=== PATIENT | male | born 1960 | race Hispanic/Latino ===

== ENCOUNTER 2020-07-12 20:16 | Inpatient (IN) | payer MEDICARE ==
[2020-07-12] MEDS ORDERED: Ondansetron PF 4 MG/2 ML Vial ONE (20:50)
[2020-07-12 21:14] LABS: #Basophils 0.1 thou/uL (0.0-0.2); #Eosinphils 0.3 thou/uL (0.0-0.7); #Monocytes 1.3 thou/uL (0.11-0.59); #Neutrophils 6.6 thou/uL (1.40-6.50); %Basophils 0.8 % (0.0-1.0); %Eosinophils 2.7 % (0.0-10.0); %Lymphocytes 19.6 % (21.0-51.0); %Monocytes 12.4 % (0.0-10.0); %Neutrophils 64.6 % (42.0-75.0); Hemoglobin 17.1 g/dL (14.0-18.0); Mean Corpuscular HGB CONC 32.1 g/dL (32.0-36.0); Mean Corpuscular Hemoglobin 31.2 pg (27.0-31.0); Platelet Count 163 thou/uL (130-400); RBC Distribution Width 13.6 % (11.5-14.5); Red Blood Cell (RBC) Count 5.48 mill/uL (4.70-6.10); White Blood Cell (WBC) Count 10.2 thou/uL (4.8-10.8)
[2020-07-12 21:34] LABS: ALT (SGPT) 15 U/L (8-55); AST (SGOT) 15 U/L (5-34); Albumin 3.6 g/dL (3.5-5.0); Alkaline Phosphatase 39 U/L (40-110); Anion Gap 14 mmol/L (10-20); BUN (Urea Nitrogen) 33 mg/dL (8.4-25.7); Calc. Creatinine Clearance 0 mL/min (70-130); Calcium 8.1 mg/dL (7.8-10.44); Carbon Dioxide 27 mmol/L (22-29); Chloride 97 mmol/L (98-107); Globulin 3.6 g/dL (2.4-3.5); Glucose 97 mg/dL (70-105); Lipase 34 U/L (8-78); Potassium 3.8 mmol/L (3.5-5.1); Protein, Total 7.2 g/dL (6.0-8.3); Sodium 134 mmol/L (136-145)
[2020-07-12] MEDS ORDERED: Ondansetron PF 4 MG/2 ML Vial IVP PRN (22:26)
[2020-07-12] MEDS ORDERED: Ondansetron ODT 4 MG TAB PO PRN (22:26)
[2020-07-12] MEDS ORDERED: Aspirin Chewable 81 MG TAB ONE (22:37)
[2020-07-12 23:11] LABS: Bilirubin Negative (Negative); Blood, Urine Negative (Negative); Clarity Clear (Clear); Glucose, Urine (Dipstick) Normal (Negative); Ketone, Urine Negative (Negative); Leukocyte Negative Leu/uL (Negative); Nitrite Negative (Negative); Protein, Urine (Dipstick) Negative (Neg-Trace); Urobilinogen Normal mg/dL (Less than 2); pH, Urine 5.5 (5.0-9.0)
[2020-07-13 00:04] VITALS: BMI 64.1
[2020-07-13 00:08] LABS: Prothrombin Time 13.2 sec (12.0-14.7)
[2020-07-13] MEDS: Sodium Chloride 0.9% 1,000 ML IV SCH ×4 (00:45→23:22)
[2020-07-13 01:25] LABS: Troponin I Less than 0.010 ng/mL (< 0.028)
[2020-07-13 04:39] LABS: #Eosinphils 0.3 thou/uL (0.0-0.7); #Lymphocytes 1.8 thou/uL (1.20-3.40); #Monocytes 1.2 thou/uL (0.11-0.59); #Neutrophils 7.9 thou/uL (1.40-6.50); %Basophils 0.3 % (0.0-1.0); %Eosinophils 2.3 % (0.0-10.0); %Lymphocytes 15.9 % (21.0-51.0); %Neutrophils 70.4 % (42.0-75.0); Hemoglobin 16.9 g/dL (14.0-18.0); Mean Corpuscular HGB CONC 32.9 g/dL (32.0-36.0); Mean Corpuscular Hemoglobin 32.2 pg (27.0-31.0); Mean Corpuscular Volume 98.1 fL (78.0-98.0); Mean Platelet Volume 8.1 fL (7.4-10.4); Platelet Count 152 thou/uL (130-400); RBC Distribution Width 13.5 % (11.5-14.5); Red Blood Cell (RBC) Count 5.26 mill/uL (4.70-6.10); White Blood Cell (WBC) Count 11.2 thou/uL (4.8-10.8)
[2020-07-13 04:45] LABS: Prothrombin Time 13.2 sec (12.0-14.7)
[2020-07-13 04:58] LABS: Anion Gap 13 mmol/L (10-20); BUN (Urea Nitrogen) 34 mg/dL (8.4-25.7); Calc. Creatinine Clearance 83 mL/min (70-130); Calcium 7.9 mg/dL (7.8-10.44); Carbon Dioxide 27 mmol/L (22-29); Chloride 102 mmol/L (98-107); Glucose 96 mg/dL (70-105); Potassium 3.8 mmol/L (3.5-5.1); Sodium 138 mmol/L (136-145)
[2020-07-13] MEDS: Acetaminophen 325 MG TAB PO PRN (07:44)
[2020-07-13 08:39] LABS: Prothrombin Time 13.3 sec (12.0-14.7)
[2020-07-13] MEDS ORDERED: Amlodipine 5 MG TAB PO SCH (09:00)
[2020-07-13] MEDS ORDERED: Enoxaparin Sodium 30 MG/0.3 ML SYRINGE SC SCH (09:00)
[2020-07-13] MEDS: hydrALAZINE 25 MG TAB PO SCH (09:26)
[2020-07-13] MEDS: Carvedilol 6.25 MG TAB PO SCH ×2 (09:26→23:09)
[2020-07-13] MEDS: Escitalopram Oxalate 10 mg Tablet PO SCH (09:27)
[2020-07-13] MEDS ORDERED: Iopamidol-370 76% 500 ML 1 ML ONE (11:13)
[2020-07-13 14:25] LABS: SARS-CoV-2 PCR by NAA Not Detected (NotDetected)
[2020-07-13] MEDS: Warfarin Sodium 5 MG TAB PO SCH (16:10)
[2020-07-14] MEDS: Sodium Chloride 0.9% 1,000 ML IV SCH ×2 (01:54→17:04)
[2020-07-14] MEDS ORDERED: HYDROcodone/Acetaminophen 5/325 mg Tablet PO SCH (03:30)
[2020-07-14 05:06] LABS: Troponin I Less than 0.010 ng/mL (< 0.028)
[2020-07-14 05:07] LABS: Anion Gap 10 mmol/L (10-20); BUN (Urea Nitrogen) 17 mg/dL (8.4-25.7); Calc. Creatinine Clearance 178 mL/min (70-130); Calcium 7.9 mg/dL (7.8-10.44); Carbon Dioxide 27 mmol/L (22-29); Chloride 105 mmol/L (98-107); Glucose 95 mg/dL (70-105); Potassium 3.7 mmol/L (3.5-5.1); Sodium 138 mmol/L (136-145)
[2020-07-14 05:11] LABS: #Basophils 0.1 thou/uL (0.0-0.2); #Eosinphils 0.3 thou/uL (0.0-0.7); #Lymphocytes 1.6 thou/uL (1.20-3.40); #Neutrophils 4.5 thou/uL (1.40-6.50); %Basophils 0.8 % (0.0-1.0); %Eosinophils 3.8 % (0.0-10.0); %Lymphocytes 21.3 % (21.0-51.0); %Monocytes 13.4 % (0.0-10.0); %Neutrophils 60.7 % (42.0-75.0); MDiff Complete? YES; Mean Corpuscular HGB CONC 33.3 g/dL (32.0-36.0); Mean Corpuscular Hemoglobin 32.5 pg (27.0-31.0); Mean Corpuscular Volume 97.5 fL (78.0-98.0); Mean Platelet Volume 8.9 fL (7.4-10.4); Platelet Clumps SLIGHT; Platelet Count 127 thou/uL (130-400); Platelet Morphology Comment Appears Adequate; RBC Distribution Width 13.3 % (11.5-14.5); Red Blood Cell (RBC) Count 4.94 mill/uL (4.70-6.10); White Blood Cell (WBC) Count 7.3 thou/uL (4.8-10.8)
[2020-07-14] MEDS: Warfarin Sodium 5 MG TAB PO SCH (17:03)
[2020-07-14] MEDS: Carvedilol 6.25 MG TAB PO SCH (17:03)
[2020-07-14] MEDS: hydrALAZINE 25 MG TAB PO SCH ×2 (17:05→20:30)
[2020-07-14] MEDS: Escitalopram Oxalate 10 mg Tablet PO SCH (17:06)
[2020-07-15 04:57] LABS: Prothrombin Time 13.2 sec (12.0-14.7)
[2020-07-15] MEDS ORDERED: Carvedilol 3.125 MG TAB PO SCH (08:00)
[2020-07-15] MEDS: Acetaminophen 325 MG TAB PO PRN ×2 (08:36→19:17)
[2020-07-15] MEDS: Escitalopram Oxalate 10 mg Tablet PO SCH (08:37)
[2020-07-15] MEDS: hydrALAZINE 25 MG TAB PO SCH ×2 (08:37→20:59)
[2020-07-15] MEDS ORDERED: Polyethylene Glycol 3350 17 GM Packet PO PRN (11:55)
[2020-07-15] MEDS: Warfarin Sodium 7.5 MG TAB PO SCH (16:31)
[2020-07-15] MEDS ORDERED: Lisinopril 10 MG TAB PO SCH (21:00)
[2020-07-16 05:07] LABS: #Basophils 0.1 thou/uL (0.0-0.2); #Eosinphils 0.1 thou/uL (0.0-0.7); #Lymphocytes 1.8 thou/uL (1.20-3.40); #Monocytes 1.3 thou/uL (0.11-0.59); #Neutrophils 7.9 thou/uL (1.40-6.50); %Basophils 0.7 % (0.0-1.0); %Eosinophils 1.2 % (0.0-10.0); %Lymphocytes 16.4 % (21.0-51.0); %Monocytes 11.5 % (0.0-10.0); %Neutrophils 70.2 % (42.0-75.0); Mean Corpuscular HGB CONC 33.7 g/dL (32.0-36.0); Mean Corpuscular Hemoglobin 32.3 pg (27.0-31.0); Mean Corpuscular Volume 95.9 fL (78.0-98.0); Mean Platelet Volume 7.9 fL (7.4-10.4); Platelet Count 165 thou/uL (130-400); RBC Distribution Width 13.4 % (11.5-14.5); Red Blood Cell (RBC) Count 5.25 mill/uL (4.70-6.10); White Blood Cell (WBC) Count 11.2 thou/uL (4.8-10.8)
[2020-07-16 05:23] LABS: INR-International Normal Ratio 1.1; Prothrombin Time 14.7 sec (12.0-14.7)
[2020-07-16 05:28] LABS: Anion Gap 12 mmol/L (10-20); BUN (Urea Nitrogen) 7 mg/dL (8.4-25.7); Calc. Creatinine Clearance 227 mL/min (70-130); Calcium 8.8 mg/dL (7.8-10.44); Carbon Dioxide 31 mmol/L (22-29); Chloride 101 mmol/L (98-107); Glucose 92 mg/dL (70-105); Potassium 3.5 mmol/L (3.5-5.1); Sodium 140 mmol/L (136-145)
[2020-07-16] MEDS: Escitalopram Oxalate 10 mg Tablet PO SCH (08:33)
[2020-07-16] MEDS: hydrALAZINE 25 MG TAB PO SCH ×2 (08:34→15:44)
[2020-07-16] MEDS ORDERED: Polyethylene Glycol 3350 17 GM Packet PO SCH (09:00)
[2020-07-16] MEDS: Warfarin Sodium 7.5 MG TAB PO SCH (15:44)
[2020-07-16 16:10] VITALS: TEMP 98.7
[2020-07-16 18:09] VITALS: BP 151/91
== END 2020-07-16 17:10 | disposition home or self-care (01) | DRG 683 ==
LOC: ERS 20:16 → 2NO 21:58
PROVIDERS: ADMIT Student in an Organized Health Care Education/Training Program; ATTEND Internal Medicine
DX: N17.9 Acute kidney failure, unspecified (principal); Z68.44 Body mass index [BMI] 60.0-69.9, adult; A08.4 Viral intestinal infection, unspecified; Z20.822 Contact with and (suspected) exposure to COVID-19; I48.91 Unspecified atrial fibrillation; I10 Essential (primary) hypertension; K80.20 Calculus of gallbladder without cholecystitis without obstruction; E66.01 Morbid (severe) obesity due to excess calories; G47.33 Obstructive sleep apnea (adult) (pediatric); E86.0 Dehydration; K21.9 Gastro-esophageal reflux disease without esophagitis; K59.00 Constipation, unspecified; Z88.0 Allergy status to penicillin; Z99.89 Dependence on other enabling machines and devices; Z79.01 Long term (current) use of anticoagulants; Z87.891 Personal history of nicotine dependence; Z90.49 Acquired absence of other specified parts of digestive tract
CPT/HCPCS: 36415; 71045; 74176; 78227; 80048; 80053; 81003; 83605; 83690; 84484; 85025; 85610; 87635; 93005; 93306; 96374; A9537; J1650; J2405; Q9967; U0003; U0005

== ENCOUNTER 2021-09-01 13:14 | Emergency (ER) | payer MEDICARE ==
[2021-09-01 14:43] LABS: #Basophils 0.1 thou/uL (0.0-0.2); #Eosinphils 0.3 thou/uL (0.0-0.7); #Lymphocytes 2.2 thou/uL (1.20-3.40); #Monocytes 0.9 thou/uL (0.11-0.59); #Neutrophils 5.5 thou/uL (1.40-6.50); %Basophils 0.9 % (0.0-1.0); %Eosinophils 3.6 % (0.0-10.0); %Lymphocytes 24.1 % (21.0-51.0); %Neutrophils 61.3 % (42.0-75.0); Hemoglobin 16.3 g/dL (14.0-18.0); Mean Corpuscular HGB CONC 32.6 g/dL (32.0-36.0); Mean Corpuscular Hemoglobin 31.7 pg (27.0-31.0); Mean Corpuscular Volume 97.2 fL (78.0-98.0); Mean Platelet Volume 8.1 fL (7.4-10.4); Platelet Count 179 thou/uL (130-400); Red Blood Cell (RBC) Count 5.15 mill/uL (4.70-6.10); White Blood Cell (WBC) Count 8.9 thou/uL (4.8-10.8)
[2021-09-01 14:49] LABS: ALT (SGPT) 23 U/L (8-55); AST (SGOT) 19 U/L (5-34); Albumin 3.6 g/dL (3.4-4.8); Alkaline Phosphatase 44 U/L (40-110); Anion Gap 15 mmol/L (10-20); BUN (Urea Nitrogen) 15 mg/dL (8.4-25.7); Bilirubin, Total 0.7 mg/dL (0.2-1.2); Calc. Creatinine Clearance 0 mL/min (70-130); Calcium 8.7 mg/dL (7.8-10.44); Carbon Dioxide 23 mmol/L (23-31); Chloride 105 mmol/L (98-107); Estimated GFR 81; Globulin 3.7 g/dL (2.4-3.5); Glucose 119 mg/dL (80-115); Potassium 3.9 mmol/L (3.5-5.1); Protein, Total 7.3 g/dL (5.8-8.1); Sodium 139 mmol/L (136-145)
[2021-09-01] MEDS ORDERED: HYDROcodone/Acetaminophen 7.5/325 mg Tablet ONE (14:59)
== END 2021-09-01 21:49 | disposition home or self-care (01) ==
LOC: ERS 13:14
DX: M79.605 Pain in left leg (principal); I10 Essential (primary) hypertension; I48.91 Unspecified atrial fibrillation; K21.9 Gastro-esophageal reflux disease without esophagitis; Z87.891 Personal history of nicotine dependence; Z79.899 Other long term (current) drug therapy
CPT/HCPCS: 36415; 71045; 80053; 83880; 84484; 85025; 93005; 94760

== ENCOUNTER 2022-01-25 15:27 | Emergency (ER) | payer MEDICARE, OTHER ==
[2022-01-25] MEDS ORDERED: methylPREDNISolone Sod Succ/PF 125 MG/2 ML VIAL ONE (16:07)
[2022-01-25 16:29] LABS: #Basophils 0.1 thou/uL (0.0-0.2); #Eosinphils 1.2 thou/uL (0.0-0.7); #Lymphocytes 1.7 thou/uL (1.20-3.40); #Monocytes 0.8 thou/uL (0.11-0.59); %Basophils 0.9 % (0.0-1.0); %Eosinophils 11.9 % (0.0-10.0); %Lymphocytes 17.4 % (21.0-51.0); %Monocytes 8.4 % (0.0-10.0); %Neutrophils 61.4 % (42.0-75.0); Hemoglobin 16.4 g/dL (14.0-18.0); Mean Corpuscular HGB CONC 32.6 g/dL (32.0-36.0); Mean Corpuscular Hemoglobin 31.7 pg (27.0-31.0); Mean Corpuscular Volume 97.2 fl (78.0-98.0); Mean Platelet Volume 8.2 fL (7.4-10.4); Platelet Count 185 10x3/uL (130-400); RBC Distribution Width 12.6 % (11.5-14.5); Red Blood Cell (RBC) Count 5.17 mill/uL (4.70-6.10); White Blood Cell (WBC) Count 9.8 10x3/uL (4.8-10.8)
[2022-01-25 16:49] LABS: ALT (SGPT) 27 U/L (8-55); AST (SGOT) 22 U/L (5-34); Albumin 3.9 g/dL (3.4-4.8); Alkaline Phosphatase 38 U/L (40-110); Anion Gap 11 mmol/L (10-20); BUN (Urea Nitrogen) 13 mg/dL (8.4-25.7); Bilirubin, Total 0.6 mg/dL (0.2-1.2); Calc. Creatinine Clearance 0 mL/min (70-130); Carbon Dioxide 33 mmol/L (23-31); Chloride 102 mmol/L (98-107); Estimated GFR 77; Globulin 3.7 g/dL (2.4-3.5); Glucose 110 mg/dL (80-115); Potassium 3.5 mmol/L (3.5-5.1); Protein, Total 7.6 g/dL (5.8-8.1); Sodium 142 mmol/L (136-145)
== END 2022-01-25 18:08 | disposition home or self-care (01) ==
LOC: ERS 15:27
DX: J45.901 Unspecified asthma with (acute) exacerbation (principal); I10 Essential (primary) hypertension; K21.9 Gastro-esophageal reflux disease without esophagitis; Z87.891 Personal history of nicotine dependence; Z79.01 Long term (current) use of anticoagulants
CPT/HCPCS: 71045; 80053; 83880; 84484; 85025; 93005; 94640; 96374; J2930

== ENCOUNTER 2022-03-25 15:24 | Emergency (ER) | payer MEDICARE ==
[2022-03-25] MEDS ORDERED: Diazepam 5 MG TAB ONE (16:06)
[2022-03-25] MEDS ORDERED: Ketorolac Tromethamine 30 MG/ML VIAL ONE (16:06)
== END 2022-03-25 16:19 | disposition home or self-care (01) ==
LOC: ERS 15:24
DX: S16.1XXA Strain of muscle, fascia and tendon at neck level, initial encounter (principal); I10 Essential (primary) hypertension; W19.XXXA Unspecified fall, initial encounter; Z87.891 Personal history of nicotine dependence; Z79.01 Long term (current) use of anticoagulants; Z79.899 Other long term (current) drug therapy
CPT/HCPCS: 96372; 99283; J1885